=== PATIENT | female | born 1985 | race African-American/Black ===

== ENCOUNTER 2021-04-13 10:48 | Emergency (ER) | payer SELFPAY ==
[~2021-04-13] VITALS: Ht 152.4 cm; Wt 62.0 kg
[2021-04-13 11:35] VITALS: BP 117/71
== END 2021-04-13 14:44 | disposition left against medical advice (07) ==
LOC: ER 10:48
DX: H92.03 Otalgia, bilateral (principal); Z53.21 Procedure and treatment not carried out due to patient leaving prior to being seen by health care provider

== ENCOUNTER 2024-11-20 20:21 | Emergency (ER) | payer OTHER ==
[2024-11-20 20:37] VITALS: PULSE 62; RESP 16; O2SAT 98
== END 2024-11-20 23:59 | disposition left against medical advice (07) ==
LOC: ER 20:21
DX: H92.02 Otalgia, left ear (principal); Z53.21 Procedure and treatment not carried out due to patient leaving prior to being seen by health care provider